=== PATIENT | male | born 1965 | race Caucasian/White ===

== ENCOUNTER 2019-08-25 06:26 | Day surgery (SDC) | payer OTHER ==
[2019-08-24 15:27] VITALS: BMI 33.9
--- NOTE | 2019-08-25 06:38 | PN ---
Progress Note (short form) - Note Progress Note: Surgical Preoperative History/Physical: Mr. Busby is a 54 year old diabetic male with history of left second digit non- healing diabetic ulcer for approximately 2 months. He denies F/V/N/C/SOB/CP. MRI obtained in wound healing center for work up which confirmed osteomyelitis at the second PIPJ. We reviewed conservative and surgical options at length; the decision was made for surgical correction via second digit arthroplasty and bone biopsy. 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 There is a dorsal second digit diabetic ulcer at the PIPJ, granular base, down to joint capsule. There is no purulent drainage, no fluctuance, no st reaking ascending cellulitis, no soft tissue crepitus. There is gross digital edema. L foot XR: lucency at second proximal phalanx head suspicious for osteomyelitis L foot MRI: osteomyelitis second PIPJ Imp: 54 year old diabetic male with diabetic ulcer and osteomyelitis left second digit Plan: Reviewed treatment options at length with patient in wound healing center. Risks, benefits and alternatives to surgery discussed at length. Plan for debridement of left second digit ulcer with arthroplasty and bone biopsy to confirm osteomyelitis. Surgery to be performed under local anesthetic and MAC. Kena Magana DPM
[2019-08-25] MEDS ORDERED: PROPOFOL 20 ML ONE ×3 (07:29→07:32)
[2019-08-25] MEDS ORDERED: MIDAZOLAM HCL 2 MG/2 ML SINGLE DOSE VIAL ONE (07:29)
[2019-08-25] MEDS ORDERED: SUCCINYLCHOLINE CHLORIDE 200 MG/10 ML SYRINGE ONE (07:29)
[2019-08-25] MEDS ORDERED: SODIUM CHLORIDE 0.9% P/F 10 ML VIAL IJ ONE (07:33)
[2019-08-25] MEDS ORDERED: ceFAZolin SODIUM 1 GM VIAL ONE (07:33)
[2019-08-25] MEDS ORDERED: LIDOCAINE HCL/PF 2% SDV 5ML VIAL ONE (07:33)
[2019-08-25] MEDS ORDERED: LIDOCAINE HCL 2% (50ML VIAL) INF ONE ×2 (07:34→08:12)
[2019-08-25] MEDS ORDERED: ONDANSETRON 4 MG/2 ML VIAL IVPUSH PRN (08:24)
[2019-08-25] MEDS ORDERED: oxyCODONE HCL 5 MG TABLET PO PRN ×2 (08:24)
[2019-08-25] MEDS ORDERED: LACTATED RINGERS SOLUTION 1,000 ML IV SCH (08:30)
[2019-08-25] MEDS ORDERED: VANCOMYCIN 1,000 MG VIAL (RESTRICTED TO ID ONLY) IVPB ONE (08:58)
[2019-08-25] MEDS ORDERED: oxyCODONE HCL 5 MG TABLET ONE (13:18)
--- NOTE | 2019-08-25 15:56 | OP ---
Operative Note - Note: Operative Date: 08/25/19 Pre-Operative Diagnosis: left second digit diabetic ulcer, osteomyelitis Operation: left second digit arthroplasty and bone biopsy Post-Operative Diagnosis: Same as Pre-op Surgeon: Donald Magana Anesthesia: Local, MAC Specimens Removed: bone right second digit Estimated Blood Loss (mls): 10 Operative Report Dictated: Yes
[2019-08-25 18:16] VITALS: BP 130/70; PULSE 66; TEMP 98.2
--- NOTE | 2019-08-26 15:26 | PATH ---
Surgical Pathology Report Patient Name: JEREMY INGRAM [facility]. Rec. #: [id number] /Age/Gender: 1965 (Age: 54) / M Account: [id number] Location: [facility] SURGICAL Taken: 08/25/2019 Received: 08/25/2019 Reported: 08/26/2019 Physicians: Donald Magana DPM Specimen(s) Received A: LEFT SECOND TOE, PROXIMAL BONE B: LEFT SECOND TOE BONE Clinical History Osteomyelitis left second toe Final Diagnosis A. PROXIMAL BONE, SECOND TOE, LEFT, EXCISION: BONE WITH REACTIVE CHANGES. NO OSTEOMYELITIS IDENTIFIED. B. BONE, SECOND TOE, LEFT, EXCISION: BONE WITH FOCAL PATCHY MILD CHRONIC OSTEOMYELITIS AND REACTIVE CHANGES. NO ACUTE COMPONENT IDENTIFIED. Electronically Signed Paulette Camejo M.D. Gross Description A. Received in formalin labeled "left second toe proximal bone," is a 1.2 x 0.9 x 0.3 cm rudd bone shave. The specimen is submitted in toto in one cassette, following decalcification. B. Received in formalin labeled "left second toe bone," are 2 rudd, irregular portions of bone. The first portion is a 1.2 x 1.0 x 0.2 cm bone shave and the second is a 1.3 x 0.5 x 0.5 cm elongated portion of bone. The specimen is entirely submitted in 2 cassettes as follows: 1-bone shave, following decalcification; 2-bisected elongated portion of bone, following decalcification. /08/25/2019 saudi/08/25/2019
--- NOTE | 2019-08-26 19:05 | OP ---
DATE OF OPERATION: 08/25/2019 PREOPERATIVE DIAGNOSIS: Left second digit diabetic ulcer osteomyelitis. POSTOPERATIVE DIAGNOSIS: Left second digit diabetic ulcer osteomyelitis. PROCEDURE: Left second digit arthroplasty with bone biopsy. SURGEON: Donald Magana DPM. NEEDLE PUNCH OPERATOR: None. ANESTHESIA: IV sedation with local. HEMOSTASIS: Surgical dissection. PATHOLOGY: Bone left 2nd toe. COMPLICATIONS: None. DESCRIPTION OF PROCEDURE: Patient was brought to the operating room and placed on the operating table in a supine position. I elected to not use a tourniquet during the course of the procedure. Following the induction of IV sedation, local anesthesia was achieved utilizing 10 mL of 2% lidocaine plain. The left foot was scrubbed, prepped, and draped in the usual sterile fashion. Attention was directed to the left second toe, where there was a severe hammertoe contracture with a dorsal IPJ diabetic ulcer down to bone. I began by performing a 3.0-cm linear longitudinal incision both proximal and distal to the central ulcer. The incision was deepened using sharp and blunt dissection taking care to retract vital neural and vascular structures. All bleeders were cauterized and ligated as needed. The dorsal central ulcer was excised entirely. The deep capsular and ligamentous structures were reflected from the head of the proximal phalanx. The head of the proximal phalanx was noted to be sclerotic. Utilizing the sagittal saw, the head of the proximal phalanx was resected. A portion of the bone was sectioned for both bone biopsy and bone culture. A wound culture was also obtained. Next, the articular surface from the middle phalanx was resected using the sagittal saw. This too was removed from the surgical site. Following conclusion of the procedure, the surgical site was copiously irrigated with sterile saline, deep capsular structures were reapproximated using 4-0 Vicryl. Skin was coapted and maintained using 3-0 nylon in a simple interrupted suture fashion. Following conclusion of the procedure, the incision was covered with Xeroform and a sterile compressive dressing was applied to the left foot consisting of sterile gauze, Kerlix, and an David wrap. The patient tolerated procedure and anesthesia well without complications. He was transferred from the operating room to the recovery unit with vital signs stable and neurovasculature intact to the left foot. OMARI DODD/[id number] cc: [facility] Pod[facility]
== END 2019-08-25 14:00 | disposition home or self-care (01) ==
LOC: JASU-SURG 06:26
PROVIDERS: ATTEND Student in an Organized Health Care Education/Training Program
PROC: 0QBR0ZZ Excision of Left Toe Phalanx, Open Approach (ICD-10-PCS; principal; 2019-08-25 08:00)
DX: E11.621 Type 2 diabetes mellitus with foot ulcer (principal); M86.9 Osteomyelitis, unspecified; L97.529 Non-pressure chronic ulcer of other part of left foot with unspecified severity; Z79.84 Long term (current) use of oral hypoglycemic drugs
CPT/HCPCS: 73630-TC-LT; 82962; 87070; 87075; 87077; 87186; 87205; 88305-TC; 88311-TC; 94760

== ENCOUNTER 2020-05-31 12:04 | Emergency (ER) | payer OTHER ==
[2020-05-31 12:17] VITALS: BP 120/75; PULSE 84; TEMP 97.9; BMI 35.2
[2020-05-31] MEDS ORDERED: DIPHTH,PERTUSS(ACELL),TET 0.5 ML DISP.SYRIN IM ONE ×2 (13:19→13:23)
== END 2020-05-31 13:28 | disposition home or self-care (01) ==
LOC: JERFT 12:04
PROC: 0H98XZZ Drainage of Buttock Skin, External Approach (ICD-10-PCS; principal; 2020-05-31)
PROC: 3E0234Z Introduction of Serum, Toxoid and Vaccine into Muscle, Percutaneous Approach (ICD-10-PCS; principal; 2020-05-31)
DX: L02.31 Cutaneous abscess of buttock (principal)
CPT/HCPCS: 11042; 90715; 99283-25

== ENCOUNTER 2020-06-02 12:11 | Emergency (ER) | payer OTHER ==
[2020-06-02 12:20] VITALS: BP 145/79; PULSE 85; TEMP 98; BMI 35.2
== END 2020-06-02 13:04 | disposition home or self-care (01) ==
LOC: JERFT 12:11
DX: L03.317 Cellulitis of buttock (principal)
CPT/HCPCS: 99283-25

== ENCOUNTER 2020-10-11 04:25 | Day surgery (SDC) | payer OTHER ==
[2020-10-10 13:30] VITALS: BMI 33.9
[2020-10-11] MEDS ORDERED: LIDOCAINE HCL/PF 2% SDV 5ML VIAL ONE (07:36)
[2020-10-11] MEDS ORDERED: LIDOCAINE HCL 2% (20ML MULTI-DOSE VIAL) ONE (07:44)
[2020-10-11] MEDS ORDERED: LIDOCAINE HCL 2% (50ML VIAL) INF ONE (08:28)
[2020-10-11] MEDS ORDERED: BENZOIN/ALOE VERA/STORAX/TOLU 58 ML BOTTLE ONE (08:55)
[2020-10-11 10:05] VITALS: BP 130/70; PULSE 70; TEMP 98
== END 2020-10-11 10:01 | disposition home or self-care (01) ==
LOC: JASU-SURG 04:25
PROVIDERS: ATTEND Student in an Organized Health Care Education/Training Program
PROC: 0HRMXK3 Replacement of Right Foot Skin with Nonautologous Tissue Substitute, Full Thickness, External Approach (ICD-10-PCS; 2020-10-11)
PROC: 0JBQ0ZZ Excision of Right Foot Subcutaneous Tissue and Fascia, Open Approach (ICD-10-PCS; principal; 2020-10-11 07:30)
DX: E11.621 Type 2 diabetes mellitus with foot ulcer (principal); Z79.84 Long term (current) use of oral hypoglycemic drugs
CPT/HCPCS: 82962

== ENCOUNTER 2021-02-19 12:10 | Emergency (ER) | payer OTHER ==
[2021-02-19 12:14] VITALS: BP 131/72; PULSE 96; TEMP 97; BMI 31.1
[2021-02-19] MEDS ORDERED: IBUPROFEN 400 MG TABLET (FP) PO ONE ×2 (12:55→13:06)
== END 2021-02-19 13:49 | disposition home or self-care (01) ==
LOC: JER 12:10 → JERFT 12:10
PROC: 0H98XZZ Drainage of Buttock Skin, External Approach (ICD-10-PCS; principal; 2021-02-19)
DX: L02.31 Cutaneous abscess of buttock (principal)
CPT/HCPCS: 99283-25

== ENCOUNTER 2021-02-22 08:30 | Emergency (ER) | payer OTHER ==
[2021-02-22 09:36] VITALS: BP 124/59; PULSE 84; TEMP 98.2; BMI 32.5
== END 2021-02-22 11:15 | disposition home or self-care (01) ==
LOC: JERFT 08:30
DX: Z48.00 Encounter for change or removal of nonsurgical wound dressing (principal)
CPT/HCPCS: 99281-25

== ENCOUNTER 2021-03-20 12:02 | Emergency (ER) | payer OTHER ==
[2021-03-20 12:12] VITALS: BP 133/75; PULSE 91; TEMP 97.5; BMI 27.1
== END 2021-03-20 13:02 | disposition home or self-care (01) ==
LOC: JERFT 12:02
DX: L03.317 Cellulitis of buttock (principal)
CPT/HCPCS: 99281-25

== ENCOUNTER 2021-12-28 12:59 | Emergency (ER) | payer BC ==
[2021-12-28 13:15] VITALS: BP 119/71; PULSE 87; RESP 16; TEMP 98.4; BMI 33.9
== END 2021-12-28 14:57 | disposition home or self-care (01) ==
LOC: JERFT 12:59
PROC: 0H9FXZZ Drainage of Right Hand Skin, External Approach (ICD-10-PCS; principal; 2021-12-28)
DX: L03.011 Cellulitis of right finger (principal)
CPT/HCPCS: 99282-25